=== PATIENT | male | born 1995 | race Caucasian/White ===

== ENCOUNTER 2021-08-12 01:58 | Emergency (ER) | payer OTHER, MEDICAID ==
[~2021-08-12] VITALS: Ht 167.6 cm; Wt 68.0 kg
[2021-08-12 02:09] VITALS: BP 108/57
[2021-08-12] MEDS ORDERED: ACETAMINOPHEN 500 MG TAB PO ONE (02:15)
== END 2021-08-12 03:02 | disposition left against medical advice (07) ==
LOC: ER 02:00
DX: H92.01 Otalgia, right ear (principal); Z53.21 Procedure and treatment not carried out due to patient leaving prior to being seen by health care provider